=== PATIENT | female | born 1940 | race Two or more races ===

== ENCOUNTER 2020-06-15 09:45 | Inpatient (IN) | payer OTHER ==
[2020-06-15] MEDS ORDERED: COZAAR100 MG PO (15:21)
[2020-06-15] MEDS ORDERED: HYDRALAZINE HCL25 MG PO (15:21)
[2020-06-15] MEDS ORDERED: ADULT LOW DOSE81 M1 PO (15:21)
[2020-06-15] MEDS ORDERED: STALEVO 100 TA1 EACH PO (15:23)
[2020-06-15] MEDS ORDERED: [UNRECOGNIZED DRUG - REMARK] (15:23)
[2020-06-21] MEDS ORDERED: RETACRIT40000 UNIT (09:50)
[2020-06-21] MEDS ORDERED: XARELTO10 M1 (09:53)
[2020-06-21] MEDS ORDERED: DIPHENHYDRAMINE25 M1 (09:59)
[2020-06-21] MEDS ORDERED: LOSARTAN-HCTZ1 EAC1 (09:59)
[2020-06-21] MEDS ORDERED: DICLOFENAC SOD100 GM (09:59)
[2020-06-21] MEDS ORDERED: AMOXICILLIN500 MG (09:59)
[2020-06-21] MEDS ORDERED: CELECOXIB200 MG (09:59)
[2020-06-21] MEDS ORDERED: ULTRAM50 MG (10:00)
[2020-06-21] MEDS ORDERED: CARBIDOPA-LEVO1 EA11 (10:04)
== END 2020-06-23 13:28 | DRG 470 ==
LOC: O/R 06-20 06:19 → SURH 06-20 07:00
PROVIDERS: ADMIT Orthopaedic Surgery; ATTEND Orthopaedic Surgery
PROC: 0SRD0J9 Replacement of Left Knee Joint with Synthetic Substitute, Cemented, Open Approach (ICD-10-PCS; principal; 2020-06-20 07:00)
DX: M17.12 Unilateral primary osteoarthritis, left knee (principal); M85.662 Other cyst of bone, left lower leg

== ENCOUNTER 2023-06-12 10:41 | Outpatient (CLI) | payer OTHER ==
[~2023-06-12 10:41] MED LIST: ADULT LOW DOSE81 M1 PO; AMOXICILLIN500 MG; CARBIDOPA-LEVO1 EA11; CELECOXIB200 MG; COZAAR100 MG PO; DICLOFENAC SOD100 GM; DIPHENHYDRAMINE25 M1; HYDRALAZINE HCL25 MG PO; LOSARTAN-HCTZ1 EAC1; RETACRIT40000 UNIT; STALEVO 100 TA1 EACH PO; ULTRAM50 MG; XARELTO10 M1; [UNRECOGNIZED DRUG - REMARK]
== END 2023-06-12 10:48 | disposition home or self-care (01) ==
LOC: RAD 10:41
PROVIDERS: ATTEND Orthopaedic Surgery
DX: M54.50 Low back pain, unspecified (principal)